=== PATIENT | female | born 1930 | race Caucasian/White ===

== ENCOUNTER 2016-09-20 16:26 | Emergency (ER) | payer OTHER ==
[~2016-09-20] VITALS: Ht 170.2 cm; Wt 74.0 kg
[~2016-09-20 16:26] MED LIST: CAL-CITRATE PL1 EACH PO; DAILY VITAMIN1 EAC8 PO; DIOVAN HCT 11 TABLET PO; LEVOFLOXACIN750 MG PO; LO-DOSE ASPIRIN81 M1 PO
[2016-09-20] MEDS ORDERED: CELEBREX100 MG PO (22:17)
[2016-09-20 22:38] VITALS: BP 154/87
== END 2016-09-20 22:39 | disposition home or self-care (01) ==
LOC: EME 16:26
DX: M25.561 Pain in right knee (principal); M13.861 Other specified arthritis, right knee; I10 Essential (primary) hypertension; Z79.82 Long term (current) use of aspirin
CPT/HCPCS: 73564; 93971; 99281; 99284

== ENCOUNTER 2016-11-23 17:49 | Inpatient (IN) | payer OTHER ==
[~2016-11-23] VITALS: Ht 165.1 cm; Wt 75.2 kg
[~2016-11-23 17:49] MED LIST changes: +CELEBREX100 MG PO
[2016-11-23 18:57] LABS: ADD MIUA? YES; BILIRUBIN NEGATIVE; BLOOD LARGE; COLOR AMBER ((YELLOW)); GLUCOSE (STRIP) NEGATIVE; KETONES 5; LEUKOCYTES LARGE; NITRITE NEGATIVE; PROTEIN (STRIP) 100; SPECIFIC GRAVITY 1.015 (1.000-1.030); UROBILINOGEN 0.2 MG/DL (0.2-1.0)
[2016-11-23 19:05] LABS: EOSINOPHIL (%) 0.1 % (0-5); HEMATOCRIT 31.3 % (36.0-46.0); IMMATURE GRANULOCYTE (%) 0.4 % (0.0-0.7); LYMPHOCYTE COUNT 1.2 K/uL (1.0-2.8); MCH 30.7 PG (29.0-34.0); MCHC 33.5 G/DL (30.0-36.0); MCV 91.5 FL (83-99); MEAN PLAT.VOLUME 10.1 uM^3 (9.5-12.4); MONOCYTE (%) 11.5 % (3-12); MONOCYTE COUNT 0.9 K/uL (0-0.8); NEUTROPHIL (%) 73.2 % (45-76); PLATELET COUNT 180 K/uL (156-360); RBC DIS.WIDTH-CV 13.4 % (11.8-14.6); RBC DIS.WIDTH-SD 45.3 % (39-53); RED BLOOD COUNT 3.42 M/uL (3.80-5.20); WHITE BLOOD COUNT 8.2 K/uL (4.1-10.2)
[2016-11-23 19:11] LABS: CASTS NONE SEEN /LPF; EPITHELIAL CELLS 2+ /HPF; MUCUS NONE SEEN /LPF
[2016-11-23 19:12] LABS: BACTERIA 4+ /HPF; RED BLOOD CELLS 15-20 /HPF (0-5); UCUL ADDED? YES; WHITE BLOOD CELLS TNTC /HPF (0-5)
[2016-11-23 19:12] LABS: CHLORIDE 103 mEq/L (99-109); POTASSIUM 3.4 mEq/L (3.7-5.4); SODIUM 133 mEq/L (136-147)
[2016-11-23 19:14] LABS: GLUCOSE 130 mg/dL (70-99)
[2016-11-23 19:15] LABS: INTER. NORMALIZED RATIO 1.1; PROTHROMBIN TIME 10.9 (9.2-11.2); PTT 35.5 (25-32)
[2016-11-23 19:16] LABS: ANION GAP 8 MEQ/L (2-14); TOTAL BILIRUBIN 0.6 mg/dL (0.0-1.0)
[2016-11-23 19:18] LABS: ALKALINE PHOSPHATASE 66 IU/L (3-129); GFR ESTIMATE (CALCULATED) > 59 mL/min/
[2016-11-23 19:19] LABS: UREA NITROGEN (BUN) 16 mg/dL (9-23)
[2016-11-23] MEDS ORDERED: DAILY VALUE1 EACH PO (20:12)
[2016-11-23] MEDS ORDERED: SINGULAIR10 MG PO (20:13)
[2016-11-23 23:49] VITALS: BP 169/69
[2016-11-24 04:31] VITALS: BP 143/60
[2016-11-24 06:55] LABS: EOSINOPHIL (%) 0 % (0-5); IMMATURE GRANULOCYTE (%) 0.6 % (0.0-0.7); IMMATURE GRANULOCYTE COUNT 0.1 K/uL; INSTRUMENT ABS NEUTROPHIL CT 5.6 K/uL; LYMPHOCYTE COUNT 1.9 K/uL (1.0-2.8); MCH 30.7 PG (29.0-34.0); MCHC 32.9 G/DL (30.0-36.0); MCV 93.4 FL (83-99); MONOCYTE (%) 12.1 % (3-12); NEUTROPHIL (%) 64.6 % (45-76); NEUTROPHIL COUNT 5.6 K/uL (1.8-6.4); PLATELET COUNT 169 K/uL (156-360); RBC DIS.WIDTH-CV 13.4 % (11.8-14.6); RBC DIS.WIDTH-SD 46.4 % (39-53); RED BLOOD COUNT 3.32 M/uL (3.80-5.20); WHITE BLOOD COUNT 8.6 K/uL (4.1-10.2)
[2016-11-24 07:18] LABS: ANION GAP 9 MEQ/L (2-14); CHLORIDE 105 MEQ/L (99-109); GFR ESTIMATE (CALCULATED) > 59 mL/min/; GLUCOSE 98 mg/dL (70-99); SAMPLE HEMOLYSIS CHECK 0; SAMPLE ICTERIC CHECK 0; SAMPLE LIPEMIA CHECK 0; SODIUM 136 MEQ/L (136-147); UREA NITROGEN (BUN) 12 mg/dL (9-23)
[2016-11-24 08:22] VITALS: BP 123/62
[2016-11-24 13:35] VITALS: BP 144/66
[2016-11-24 15:56] VITALS: BP 134/96
[2016-11-24 23:15] VITALS: BP 143/65
[2016-11-25 06:44] LABS: GFR ESTIMATE (CALCULATED) > 59 mL/min/
[2016-11-25 07:54] VITALS: BP 173/72
[2016-11-25 16:33] VITALS: BP 153/67
[2016-11-25 22:57] VITALS: BP 145/68
[2016-11-26 07:00] VITALS: BP 160/76
[2016-11-26 07:46] LABS: HEMATOCRIT 28.6 % (36.0-46.0); MCH 30.1 PG (29.0-34.0); MCHC 32.9 G/DL (30.0-36.0); MCV 91.7 FL (83-99); MEAN PLAT.VOLUME 10.2 uM^3 (9.5-12.4); PLATELET COUNT 186 K/uL (156-360); RBC DIS.WIDTH-CV 13.2 % (11.8-14.6); RBC DIS.WIDTH-SD 44.6 % (39-53); RED BLOOD COUNT 3.12 M/uL (3.80-5.20)
[2016-11-26 07:47] LABS: WHITE BLOOD COUNT 4.4 K/uL (4.1-10.2)
[2016-11-26 08:48] LABS: ANION GAP 8 MEQ/L (2-14); CHLORIDE 107 MEQ/L (99-109); GFR ESTIMATE (CALCULATED) > 59 mL/min/; GLUCOSE 91 mg/dL (70-99); POTASSIUM 3.7 MEQ/L (3.7-5.4); SAMPLE HEMOLYSIS CHECK 0; SAMPLE ICTERIC CHECK 0; SAMPLE LIPEMIA CHECK 0; SODIUM 138 MEQ/L (136-147); UREA NITROGEN (BUN) 7 mg/dL (9-23)
[2016-11-26 10:30] LABS: EOSINOPHIL (%) 0 % (0-5); IMMATURE GRANULOCYTE (%) 0.2 % (0.0-0.7); INSTRUMENT ABS NEUTROPHIL CT 2.3 K/uL; LYMPHOCYTE COUNT 1.5 K/uL (1.0-2.8); MONOCYTE (%) 13.5 % (3-12); MONOCYTE COUNT 0.6 K/uL (0-0.8); NEUTROPHIL (%) 51.6 % (45-76); NEUTROPHIL COUNT 2.3 K/uL (1.8-6.4); PLAT.SUFFICIENCY ADEQUATE
[2016-11-26 11:37] VITALS: BP 147/65
[2016-11-26 16:05] VITALS: BP 145/73
[2016-11-26 19:14] VITALS: BP 130/58
[2016-11-26 22:59] VITALS: BP 153/68
[2016-11-27 03:52] VITALS: BP 158/70
[2016-11-27 07:04] VITALS: BP 190/77
[2016-11-27 07:35] VITALS: BP 160/64
[2016-11-27 07:35] LABS: ANION GAP 9 MEQ/L (2-14); CHLORIDE 103 MEQ/L (99-109); GFR ESTIMATE (CALCULATED) > 59 mL/min/; GLUCOSE 86 mg/dL (70-99); POTASSIUM 3.8 MEQ/L (3.7-5.4); SAMPLE HEMOLYSIS CHECK 0; SAMPLE ICTERIC CHECK 0; SAMPLE LIPEMIA CHECK 0; SODIUM 137 MEQ/L (136-147); UREA NITROGEN (BUN) 10 mg/dL (9-23)
[2016-11-27 07:37] LABS: HEMATOCRIT 32.7 % (36.0-46.0); MCH 29.9 PG (29.0-34.0); MCHC 30.6 G/DL (30.0-36.0); MEAN PLAT.VOLUME 10.4 uM^3 (9.5-12.4); PLATELET COUNT 185 K/uL (156-360); RBC DIS.WIDTH-CV 13.7 % (11.8-14.6); RBC DIS.WIDTH-SD 48.7 % (39-53); RED BLOOD COUNT 3.35 M/uL (3.80-5.20); WHITE BLOOD COUNT 4.3 K/uL (4.1-10.2)
[2016-11-27 07:43] LABS: MCV 97.6 FL (83-99)
[2016-11-27 08:17] LABS: EOSINOPHIL (%) 0.5 % (0-5); HEMATOLOGY COMMENT 1 SMEAR COMPATIBLE; IMMATURE GRANULOCYTE (%) 0.7 % (0.0-0.7); INSTRUMENT ABS NEUTROPHIL CT 1.9 K/uL; LYMPHOCYTE COUNT 1.8 K/uL (1.0-2.8); MONOCYTE (%) 11.6 % (3-12); MONOCYTE COUNT 0.5 K/uL (0-0.8); NEUTROPHIL (%) 44.5 % (45-76); NEUTROPHIL COUNT 1.9 K/uL (1.8-6.4)
[2016-11-27 11:32] VITALS: BP 138/63
[2016-11-27] MEDS ORDERED: TRAZODONE HCL50 MG PO (11:55)
[2016-11-27] MEDS ORDERED: K-DUR20 MEQ PO (11:55)
[2016-11-27] MEDS ORDERED: TYLENOL REGULA325 MG PO (11:55)
[2016-11-27] MEDS ORDERED: BREO ELLIPTA 21 EACH IH (11:56)
[2016-11-27] MEDS ORDERED: LEVAQUIN500 MG PO (12:10)
== END 2016-11-27 13:30 | disposition home or self-care (01) | DRG 689 ==
LOC: EME → EDBD 17:49 → EME 17:49 → 5EAST 20:59 → EDOF 20:59 → 5EAST 21:53
PROVIDERS: Emergency Medicine; Family Medicine; Family Medicine Sports Medicine
DX: N39.0 Urinary tract infection, site not specified (principal); G93.40 Encephalopathy, unspecified; J15.4 Pneumonia due to other streptococci; E87.70 Fluid overload, unspecified; E87.6 Hypokalemia; I10 Essential (primary) hypertension; M17.11 Unilateral primary osteoarthritis, right knee; Z66 Do not resuscitate; Z51.5 Encounter for palliative care; Z88.0 Allergy status to penicillin; Z79.82 Long term (current) use of aspirin
CPT/HCPCS: 71010; 71250; 80048; 80053; 81003; 82565; 83605; 85025; 85610; 85730; 87040; 87086; 87801; 93005; 94640; 94640 76; 94799; 99202; 99281; 99285; J0456; J0692; J0696; J1650; J1940; J3260; J3370; J3480; J7030; J7050

== ENCOUNTER 2017-01-14 09:46 | Inpatient (IN) | payer OTHER ==
[~2017-01-14] VITALS: Ht 165.1 cm; Wt 70.8 kg
[~2017-01-14 09:46] MED LIST changes: +BREO ELLIPTA 21 EACH IH; +DAILY VALUE1 EACH PO; +K-DUR20 MEQ PO; +LEVAQUIN500 MG PO; +SINGULAIR10 MG PO; +TRAZODONE HCL50 MG PO; +TYLENOL REGULA325 MG PO
[2017-01-27] MEDS ORDERED: PROBIOTIC1 EAC1 PO (10:53)
[2017-01-27] MEDS ORDERED: CENTRUM SILVER1 EAC3 PO (10:53)
[2017-01-27] MEDS ORDERED: BREO ELLIPTA I1 EACH IH (10:55)
[2017-01-27] MEDS ORDERED: BREO ELLIPTA 21 EACH IH (10:56)
[2017-01-27] MEDS ORDERED: ZANTAC150 MG PO (10:57)
[2017-01-27] MEDS ORDERED: IMODIUM A-D2 M2 PO (11:39)
[2017-01-31] VITALS (10 sets, daily range): BP systolic 118–194; BP diastolic 47–77
[2017-01-31 07:27] LABS: METH RESISTANT S AUREUS PCR NEGATIVE (NEGATIVE)
[2017-01-31 07:46] LABS: PROBE CHECK PASS; SPECIMEN PROCESSING CONTROL PASS
[2017-01-31 12:53] LABS: METH RESISTANT S AUREUS PCR NEGATIVE (NEGATIVE)
[2017-01-31 12:54] LABS: PROBE CHECK PASS; SPECIMEN PROCESSING CONTROL PASS
[2017-01-31] MEDS ORDERED: HYDROCODON-ACE1 EAC7 PO (16:27)
[2017-02-01 03:45] VITALS: BP 154/68
[2017-02-01 08:50] VITALS: BP 153/68
== END 2017-02-01 10:32 | disposition home or self-care (01) | DRG 983 ==
LOC: 2SOUTH 09:46 → 4WEST 01-31 10:58 → 2SOUTH 01-31 15:33 → 4EAST 01-31 22:25
PROVIDERS: Surgery
PROC: 02C00ZZ Extirpation of Matter from Coronary Artery, One Artery, Open Approach (ICD-10-PCS; principal; 2017-01-31)
DX: I65.21 Occlusion and stenosis of right carotid artery (principal); I10 Essential (primary) hypertension
CPT/HCPCS: 87641; 93005; 94760; 99202; C1768; J1644; J1650; J2720; J2795; J7120

== ENCOUNTER 2017-02-11 09:40 | Emergency (ER) | payer OTHER ==
[~2017-02-11] VITALS: Ht 167.6 cm; Wt 68.5 kg
[~2017-02-11 09:40] MED LIST changes: +BREO ELLIPTA I1 EACH IH; +CENTRUM SILVER1 EAC3 PO; +HYDROCODON-ACE1 EAC7 PO; +IMODIUM A-D2 M2 PO; +PROBIOTIC1 EAC1 PO; +ZANTAC150 MG PO
[2017-02-11] MEDS ORDERED: NAPROXEN500 MG PO (12:56)
[2017-02-11] MEDS ORDERED: TYLENOL EXTRA500 MG PO (12:56)
[2017-02-11 13:09] VITALS: BP 192/82
== END 2017-02-11 13:17 | disposition home or self-care (01) ==
LOC: EME 09:40
DX: S20.212A Contusion of left front wall of thorax, initial encounter (principal); W18.39XA Other fall on same level, initial encounter; I10 Essential (primary) hypertension; Z79.82 Long term (current) use of aspirin
CPT/HCPCS: 71020; 72070; 99281; 99284

== ENCOUNTER → 2017-05-11 | Outpatient (CLI) | payer OTHER ==
[~2017-05-11] VITALS: Ht 162.6 cm; Wt 66.2 kg
[~2017-05-11] MED LIST changes: +APRISO0.375 GM PO; +DIOVAN160 MG PO; +NAPROXEN500 MG PO; +TYLENOL EXTRA500 MG PO
[2017-05-11 08:22] LABS: HEMATOCRIT 36.8 % (36.0-46.0); MCH 29.6 PG (29.0-34.0); MCHC 31.3 G/DL (30.0-36.0); MCV 94.6 FL (83-99); MEAN PLAT.VOLUME 10.3 uM^3 (9.5-12.4); PLATELET COUNT 193 K/uL (156-360); RBC DIS.WIDTH-CV 13.3 % (11.8-14.6); RBC DIS.WIDTH-SD 45.7 % (39-53); RED BLOOD COUNT 3.89 M/uL (3.80-5.20); WHITE BLOOD COUNT 5.6 K/uL (4.1-10.2)
== END | disposition home or self-care (01) ==
LOC: OPR 05-06 10:00 → EDSTATUS 08:00
PROVIDERS: Family Medicine Sports Medicine
PROC: 0CBJ3ZX Excision of Minor Salivary Gland, Percutaneous Approach, Diagnostic (ICD-10-PCS; principal; 2017-05-11)
DX: D11.0 Benign neoplasm of parotid gland (principal); I10 Essential (primary) hypertension; R13.10 Dysphagia, unspecified; Z87.440 Personal history of urinary (tract) infections; Z87.01 Personal history of pneumonia (recurrent)
CPT/HCPCS: 76942; 85027